=== PATIENT | female | born 1965 | race African-American/Black ===

== ENCOUNTER → 2016-04-22 | Outpatient (CLI) | payer MEDICARE, MEDICAID | END | disposition home or self-care (01) | LOC: PCVCCLINIC 13:41 | PROVIDERS: ATTEND Internal Medicine | DX: I25.5 Ischemic cardiomyopathy (principal); I50.9 Heart failure, unspecified; E11.59 Type 2 diabetes mellitus with other circulatory complications; I73.9 Peripheral vascular disease, unspecified | CPT/HCPCS: G0463 ==

== ENCOUNTER → 2016-05-25 | Outpatient (CLI) | payer MEDICARE, MEDICAID | END | disposition home or self-care (01) | LOC: PCVCCLINIC 13:46 | PROVIDERS: ATTEND Internal Medicine | DX: E78.00 Pure hypercholesterolemia, unspecified (principal); I77.9 Disorder of arteries and arterioles, unspecified; I82.409 Acute embolism and thrombosis of unspecified deep veins of unspecified lower extremity; I26.99 Other pulmonary embolism without acute cor pulmonale; I10 Essential (primary) hypertension; K21.9 Gastro-esophageal reflux disease without esophagitis; R06.00 Dyspnea, unspecified; Z86.73 Personal history of transient ischemic attack (TIA), and cerebral infarction without residual deficits | CPT/HCPCS: 36415; 80061; 93005; G0463 ==

== ENCOUNTER → 2016-06-01 | Outpatient (CLI) | payer MEDICARE, MEDICAID | END | disposition home or self-care (01) | LOC: PCVCIMAG 15:09 | PROVIDERS: ATTEND Internal Medicine | DX: I34.0 Nonrheumatic mitral (valve) insufficiency (principal); I50.9 Heart failure, unspecified; J44.9 Chronic obstructive pulmonary disease, unspecified; E78.00 Pure hypercholesterolemia, unspecified | CPT/HCPCS: 93306 ==

== ENCOUNTER → 2016-06-03 | Outpatient (CLI) | payer MEDICARE, MEDICAID | END | disposition home or self-care (01) | LOC: PCVCCLINIC 14:05 | PROVIDERS: ATTEND Internal Medicine | DX: R25.2 Cramp and spasm (principal); I25.5 Ischemic cardiomyopathy; I50.20 Unspecified systolic (congestive) heart failure | CPT/HCPCS: G0463 ==

== ENCOUNTER → 2016-08-26 | Outpatient (CLI) | payer MEDICARE, MEDICAID | END | disposition home or self-care (01) | LOC: PCVCCLINIC 10:42 | PROVIDERS: ATTEND Internal Medicine | DX: I95.2 Hypotension due to drugs (principal); I42.9 Cardiomyopathy, unspecified; I50.9 Heart failure, unspecified; F17.200 Nicotine dependence, unspecified, uncomplicated; J44.9 Chronic obstructive pulmonary disease, unspecified; E11.9 Type 2 diabetes mellitus without complications; I73.9 Peripheral vascular disease, unspecified; Z79.4 Long term (current) use of insulin; Z95.0 Presence of cardiac pacemaker; Z79.84 Long term (current) use of oral hypoglycemic drugs | CPT/HCPCS: G0463 ==

== ENCOUNTER → 2016-10-07 | Outpatient (CLI) | payer MEDICARE, MEDICAID ==
--- NOTE | 2016-10-07 11:24 | PCVCIMAG ---
APPROVED REPORT Study performed: 10/07/2016 10:12:58 EXAM: Comprehensive 2D, Doppler, and color-flow Echocardiogram Status: routine BSA: 1.78 HR: 90 bpmBP: 122/60 mmHg Other Information Study Quality: Adequate Indications Cardiomyopathy Hypotension. CHF, AICD 2D Dimensions IVSd: 9.01 (7-11mm)LVOT Diam: 19.62 (18-24mm) LVDd: 69.75 mm LVPWs: 24.86 mm PWd: 7.61 (7-11mm)Ascending Ao: 32.09 (22-36mm) LVDs: 60.56 (25-40mm) Left Atrium: 45.97 (27-40mm) Aortic Root: 24.78 mm LV Single Plane 4CH: 19.06 % LV Single Plane 2CH: 25.95 %Mcelroy's LVEF: 22.50 % Biplane EF: 22.6 % Volumes Left Atrial Volume (Systole) Single Plane 4CH: 66.69 mLSingle Plane 2CH: 68.25 mL LA ESV Index: 41.00 mL/m2 Aortic Valve AoV Peak Ras.: 1.24 m/s AO Peak Gr.: 6.14 mmHgLVOT Max P.38 mmHg LVOT Max V: 0.92 m/s JOCELYN Vmax: 2.24 cm2 Mitral Valve E/A Ratio: 0.9 MV Decel. Time: 150.10 ms MV E Max Ras.: 0.67 m/s MV A Ras.: 0.73 m/s IVRT: 173.01 ms Pulmonary Valve PV Peak Gr.: 0.99 mmHg Tricuspid Valve TR Peak Ras.: 2.31 m/s TR Peak Gr.: 21.33 mmHg Left Ventricle Left ventricle is severely dilated. There is normal LV segmental wall motion. There is normal left ventricular wall thickness. Left ventricular ejection fraction is severely decreased. LVEF is 15-20%. This study is not technically sufficient to allow evaluation of the LV diastolic function. Right Ventricle The right ventricle is normal size. The right ventricular systolic function is normal. Atria The left atrium size is normal. The right atrium size is normal. Aortic Valve The aortic valve is normal in structure. No aortic regurgitation is present. There is no aortic valvular stenosis. Mitral Valve The mitral valve is normal in structure. There is no mitral valve regurgitation noted. No evidence of mitral valve stenosis. Tricuspid Valve The tricuspid valve is normal in structure. Trace tricuspid regurgitation. Pulmonary artery pressure is 29mmhg. Pulmonic Valve The pulmonary valve is normal in structure. There is no pulmonic valvular regurgitation. Great Vessels The aortic root is normal in size. IVC is normal in size and collapses with >50% inspiration Pericardium There is no pericardial effusion. <Conclusion> Left ventricle is severely dilated. LVEF is 15-20%. The aortic valve is normal in structure. The mitral valve is normal in structure. The tricuspid valve is normal in structure. Trace tricuspid regurgitation. Pulmonary artery pressure is 29mmhg. The pulmonary valve is normal in structure. The aortic root is normal in size.
== END | disposition home or self-care (01) ==
LOC: PCVCIMAG 09:56
PROVIDERS: ATTEND Internal Medicine
DX: I07.1 Rheumatic tricuspid insufficiency (principal); I25.10 Atherosclerotic heart disease of native coronary artery without angina pectoris; I42.9 Cardiomyopathy, unspecified; I50.9 Heart failure, unspecified; E11.9 Type 2 diabetes mellitus without complications; I73.9 Peripheral vascular disease, unspecified; I95.9 Hypotension, unspecified; F17.200 Nicotine dependence, unspecified, uncomplicated; Z79.4 Long term (current) use of insulin; Z79.84 Long term (current) use of oral hypoglycemic drugs; Z95.0 Presence of cardiac pacemaker
CPT/HCPCS: 93306; G0463

== ENCOUNTER → 2016-12-17 | Outpatient (CLI) | payer MEDICARE, MEDICAID ==
--- NOTE | 2016-12-17 15:45 | PCVCIMAG ---
EXAM: RIGHT LOWER EXTREMITY ARTERIAL DUPLEX INDICATION: Peripheral Arterial Disease. Leg pain. FINDINGS: Right Leg: Satisfactory waveforms in the common femoral and profunda femoral arteries and throughout the superficial femoral artery and popliteal artery without significant stenosis. The anterior tibial and peroneal arteries are patent throughout. The posterior tibial artery is diminutive in size as was seen on prior angiogram from 2016. This may be developmental. IMPRESSION: The right posterior tibial artery is diminutive in size throughout its length as noted on previous angiogram. Otherwise the arteries of the right lower extremity are within normal limits without evidence of flow-limiting stenosis. LOC:[id number]
== END | disposition home or self-care (01) ==
LOC: PCVCIMAG 14:18
PROVIDERS: ATTEND Nuclear Medicine Nuclear Cardiology
DX: I73.9 Peripheral vascular disease, unspecified (principal); M79.604 Pain in right leg
CPT/HCPCS: 93926

== ENCOUNTER → 2017-05-09 | Outpatient (CLI) | payer MEDICARE, MEDICAID | END | disposition home or self-care (01) | LOC: PCVCCLINIC 11:14 | DX: I50.20 Unspecified systolic (congestive) heart failure (principal); I25.5 Ischemic cardiomyopathy; I95.1 Orthostatic hypotension; R42 Dizziness and giddiness; F17.210 Nicotine dependence, cigarettes, uncomplicated; Z79.899 Other long term (current) drug therapy; Z79.4 Long term (current) use of insulin | CPT/HCPCS: 80061; 93005; G0463 ==

== ENCOUNTER → 2017-07-28 | Outpatient (CLI) | payer MEDICARE, MEDICAID | END | disposition home or self-care (01) | LOC: PCVCCLINIC 10:39 | DX: I50.20 Unspecified systolic (congestive) heart failure (principal); I95.89 Other hypotension; I25.5 Ischemic cardiomyopathy; F17.200 Nicotine dependence, unspecified, uncomplicated | CPT/HCPCS: G0463 ==

== ENCOUNTER → 2017-12-15 | Outpatient (CLI) | payer MEDICARE, MEDICAID | END | disposition home or self-care (01) | LOC: PCVCCLINIC 10:00 | PROVIDERS: ATTEND Internal Medicine | DX: I25.10 Atherosclerotic heart disease of native coronary artery without angina pectoris (principal); E78.5 Hyperlipidemia, unspecified; G47.33 Obstructive sleep apnea (adult) (pediatric); J44.9 Chronic obstructive pulmonary disease, unspecified; E11.9 Type 2 diabetes mellitus without complications; I11.0 Hypertensive heart disease with heart failure; I50.23 Acute on chronic systolic (congestive) heart failure; Z79.4 Long term (current) use of insulin | CPT/HCPCS: 80061 ==

== ENCOUNTER → 2017-12-16 | Outpatient (CLI) | payer MEDICARE, MEDICAID ==
[~2017-12-16] MED LIST: FUROSEMIDE 100 MG/10 ML VIAL. ONE
--- NOTE | 2017-12-16 13:52 | PCVCIMAG ---
APPROVED REPORT Study performed: 12/16/2017 08:02:55 EXAM: Comprehensive 2D, Doppler, and color-flow Echocardiogram Patient Location: Echo lab Status: routine BSA: 1.85 HR: 108 bpmBP: 96/64 mmHg Rhythm: Tachycardia Other Information Study Quality: Adequate Indications Pacemaker CAD ischemic cardiomyopathy 2D Dimensions IVSd: 10.31 (7-11mm) LVDd: 64.71 mm PWd: 8.01 (7-11mm) LVDs: 57.44 (25-40mm) Left Atrium: 46.98 (27-40mm) Aortic Root: 28.09 mm LV Single Plane 4CH: 22.34 % LV Single Plane 2CH: 22.91 % Biplane EF: 23.2 % Volumes Left Atrial Volume (Systole) Single Plane 4CH: 90.53 mLSingle Plane 2CH: 100.51 mL LA ESV Index: 53.00 mL/m2 Aortic Valve AoV Peak Ras.: 1.02 m/s AO Peak Gr.: 4.18 mmHgLVOT Max P.78 mmHg LVOT Max V: 0.83 m/s Mitral Valve E/A Ratio: 1.4 MV Decel. Time: 118.41 ms MV E Max Ras.: 0.66 m/s MV A Ras.: 0.47 m/s IVRT: 121.11 ms Pulmonary Valve PV Peak Ras.: 0.62 m/sPV Peak Gr.: 1.53 mmHg Pulmonary Vein P Vein S: 0.22 m/sP Vein A: 0.30 m/s P Vein D: 0.29 m/sP Vein A Dur.: 124.6 msec P Vein S/D Ratio: 0.76 Tricuspid Valve TR Peak Ras.: 2.43 m/s TR Peak Gr.: 23.56 mmHg Left Ventricle Left ventricle is moderately dilated. There is normal LV segmental wall motion. There is normal left ventricular wall thickness. Left ventricular ejection fraction is severely decreased globally. LVEF is 20-25%. Grade II - pseudonormal filling dynamics. Right Ventricle The right ventricle is normal size. The right ventricular systolic function is normal. Pacemaker lead is present in the right ventricle. Atria Left atrium is severely dilated. The right atrium size is normal. Pacemaker lead is present in the right atrium. Aortic Valve The aortic valve is normal in structure. No aortic regurgitation is present. There is no aortic valvular stenosis. Mitral Valve The mitral valve is normal in structure. There is no mitral valve regurgitation noted. No evidence of mitral valve stenosis. Tricuspid Valve The tricuspid valve is normal in structure. Trace tricuspid regurgitation with PAP of 31 mmHg. Pulmonic Valve The pulmonary valve is normal in structure. There is no pulmonic valvular regurgitation. Great Vessels The aortic root is normal in size. IVC is normal in size and collapses >50% with inspiration. Pericardium There is no pericardial effusion. There is no pleural effusion. <Conclusion> Left ventricle is moderately dilated. LVEF is 20-25%. Left atrium is severely dilated. The right atrium size is normal. Pacemaker lead is present in the right atrium. The aortic valve is normal in structure. The mitral valve is normal in structure. The tricuspid valve is normal in structure. Trace tricuspid regurgitation with PAP of 31 mmHg. The pulmonary valve is normal in structure.
== END | disposition home or self-care (01) ==
LOC: PCVCINTER 07:56
PROVIDERS: ATTEND Internal Medicine
DX: I25.5 Ischemic cardiomyopathy (principal); I25.10 Atherosclerotic heart disease of native coronary artery without angina pectoris; E78.5 Hyperlipidemia, unspecified; Z95.0 Presence of cardiac pacemaker; I36.1 Nonrheumatic tricuspid (valve) insufficiency; J44.9 Chronic obstructive pulmonary disease, unspecified; G47.33 Obstructive sleep apnea (adult) (pediatric); Z98.890 Other specified postprocedural states; Z83.3 Family history of diabetes mellitus; Z82.49 Family history of ischemic heart disease and other diseases of the circulatory system; F17.210 Nicotine dependence, cigarettes, uncomplicated; Z72.89 Other problems related to lifestyle; Z79.899 Other long term (current) drug therapy; Z79.4 Long term (current) use of insulin; E11.59 Type 2 diabetes mellitus with other circulatory complications; E66.9 Obesity, unspecified; Z68.36 Body mass index [BMI] 36.0-36.9, adult
CPT/HCPCS: 93306; J1940; 96365

== ENCOUNTER → 2018-05-29 | Outpatient (CLI) | payer MEDICARE, MEDICAID | END | disposition home or self-care (01) | LOC: PCVCCLINIC 11:32 | PROVIDERS: ATTEND Internal Medicine | DX: Z48.812 Encounter for surgical aftercare following surgery on the circulatory system (principal); I50.20 Unspecified systolic (congestive) heart failure; I25.5 Ischemic cardiomyopathy; Z95.0 Presence of cardiac pacemaker | CPT/HCPCS: 93280 ==

== ENCOUNTER → 2018-07-19 | Outpatient (CLI) | payer MEDICARE, MEDICAID | END | disposition home or self-care (01) | LOC: PCVCCLINIC 10:40 | PROVIDERS: ATTEND Internal Medicine | DX: Z48.812 Encounter for surgical aftercare following surgery on the circulatory system (principal); Z95.0 Presence of cardiac pacemaker | CPT/HCPCS: 93280 ==

== ENCOUNTER → 2019-01-29 | Outpatient (CLI) | payer MEDICARE, MEDICAID | END | disposition home or self-care (01) | LOC: PCVCCLINIC 14:50 | PROVIDERS: ATTEND Internal Medicine | DX: I42.9 Cardiomyopathy, unspecified (principal); Z45.010 Encounter for checking and testing of cardiac pacemaker pulse generator [battery]; I50.20 Unspecified systolic (congestive) heart failure; E11.9 Type 2 diabetes mellitus without complications; F17.210 Nicotine dependence, cigarettes, uncomplicated; J44.9 Chronic obstructive pulmonary disease, unspecified; Z79.899 Other long term (current) drug therapy | CPT/HCPCS: 36415; 80061; 93005; G0463 ==